=== PATIENT | female | born 1995 | race American Indian/Alaskan Native ===

== ENCOUNTER 2018-06-09 11:23 | Emergency (ER) | payer SELFPAY ==
[2018-06-09 11:31] VITALS: BP 119/80
--- NOTE | 2018-06-09 11:32 | Emergency Department Report ---
Chief Complaint: Nausea/Vomiting/Diarrhea Stated Complaint: NAUSEA Time Seen by Provider: 06/09/18 11:29 - HPI History of Present Illness: cc 3 week hx nausea with no vomiting every night at 7p a little discomfort but not really pain no diarrhea bm yesterday normal pmh conversion disorder causing pain eczema psh umbilical surgery rx daily none pcp none cig deny lmp sexually active 2-20 home preg in Mar neg MSE screening note: Focused history and physical exam performed. Due to findings the following was ordered: ED Disposition for MSE Condition: Stable
--- NOTE | 2018-06-09 12:11 | Emergency Department Report ---
Vomiting/Diarrhea - HPI Chief Complaint: Nausea/Vomiting/Diarrhea Stated Complaint: NAUSEA Time Seen by Provider: 06/09/18 11:29 Duration: 3 weeks Severity: mild Nausea/Vomiting Severity: Mild Diarrhea Severity: None Pain Location: Epigastric Pain Severity: Mild Symptoms: Yes Able to Tolerate Fluids, No Recent Unusual Foods, No Recent Untreated Water, No Recent use of Antibiotics, No Family w/ Similar Symptoms, No Contacts w/ Similar Symptoms, No Rash, No Hematuria, No Recent URI Symptoms Other History: She states her nausea is worse at night and definitely after she is lying down. States is in the epigastrium. She denies any metallic taste in mouth. ED Review of Systems ROS: Stated complaint: NAUSEA Other details as noted in HPI Comment: All other systems reviewed and negative ED Past Medical Hx - Past Medical History Previous Medical History?: Yes Additional medical history: Conversion disorder, eczema - Surgical History Past Surgical History?: No - Social History Smoking Status: Never Smoker - Medications Home Medications: Home Medications Medication Instructions Recorded Confirmed Last Taken Type Famotidine [Pepcid] 40 mg PO QHS #10 tablet 06/09/18 Unknown Rx Ondansetron [Zofran Odt] 4 mg PO Q8HR PRN #10 tab.rapdis 06/09/18 Unknown Rx Vomiting Diarrhea Exam - Exam General: Vital signs noted. No distress. Alert and acting appropriately. HEENT: Yes Moist Mucous Membranes, No Pharyngeal Erythema, No Pharyngeal Exudates, No Rhinorrhea, No Conjuctival Injection, No Frontal Tenderness, No Maxillary Tenderness Neck: No Adenopathy, No Rigidity Lungs: Yes Clear Lung Sounds, Yes Good Air Exchange, No Wheezes, No Stridor, No Cough, No Nasal Flaring, No Retractions, No Use of Accessory Muscles Heart exam: Regular: Yes, Murmur: No, Tachycardia: No Abdomen: Tenderness: No, Peritoneal Signs: No, Distention: No, Hyperactive Bowel sounds: No Skin exam: Rash: No, Edema: No, Normal turgor: Yes Neurologic: Alert and oriented, no deficits. Musculoskeletal: Unremarkable. ED Course Vital Signs 06/09/18 11:28 Temperature 98.0 F Pulse Rate 80 Respiratory 16 Rate Blood Pressure 119/80 O2 Sat by Pulse 100 Oximetry ED Medical Decision Making - Radiology Data Abdominal series shows no acute process Critical care attestation.: If time is entered above; I have spent that time in minutes in the direct care of this critically ill patient, excluding procedure time. ED Disposition Clinical Impression: GERD (gastroesophageal reflux disease) Qualifiers: Esophagitis presence: esophagitis presence not specified Qualified Code(s): K21.9 - Gastro-esophageal reflux disease without esophagitis Disposition: TO HOME OR SELFCARE Is pt being admited?: No Does the pt Need Aspirin: No Condition: Stable Instructions: Diet for Ulcers and Gastritis (ED), Gastroesophageal Reflux Disease (ED) Referrals: SHABBIR CULLEN MD [Staff Physician] - 7-10 days Time of Disposition: 13:25
[2018-06-09 12:13] LABS: HCG Qualitative,Urine Negative (Negative)
[2018-06-09 12:14] LABS: Bilirubin,Urine NEG (Negative); Blood,Urine MOD (Negative); Color,Urine Yellow (Yellow); Mucus,Urine 2+ /HPF; Protein,Urine <15 mg/dL mg/dL (Negative); WBC,Urine < 1.0 /HPF (0.0-6.0)
--- NOTE | 2018-06-09 12:44 | XRay Report ---
ABDOMINAL SERIES: History: Epigastric discomfort with nausea. Erect chest film shows no acute or significant changes involving the heart or lung [place]. There is no evidence of free air beneath the diaphragms. The gas pattern within the abdomen is unremarkable. There is no evidence of bowel dilatation, significant air-fluid levels, or masses. Organ shadows are unremarkable. IMPRESSION: Abdominal series within normal limits.
== END 2018-06-09 14:08 | disposition home or self-care (01) ==
LOC: ED 11:23
DX: K21.9 Gastro-esophageal reflux disease without esophagitis (principal)
CPT/HCPCS: 74022; 81001; 81025

== ENCOUNTER 2018-10-04 22:34 | Emergency (ER) | payer OTHER ==
--- NOTE | 2018-10-05 02:05 | Emergency Department Report ---
HPI - General Chief Complaint: Skin Rash Time Seen by Provider: 10/05/18 01:52 - HPI HPI: 23-year-old female presents to the emergency department with a complaint of a rash that has been going on for the past 2-3 days. She has some small individual lesions that have been showing up at this time to her bilateral arms, right shoulder, left chest, abdomen, and her feet. They are slightly tender, red, slightly raised. There is no bleeding, weeping, drainage. She denies any recent travel or excessive time outdoors. She denies any fever. She has not taken anything for her symptoms prior to presentation. She has a past history of eczema. ED Past Medical Hx - Past Medical History Previous Medical History?: Yes Additional medical history: Conversion disorder, eczema - Surgical History Past Surgical History?: Yes Additional Surgical History: Umbilical - Social History Smoking Status: Never Smoker Substance Use Type: None - Medications Home Medications: Home Medications Medication Instructions Recorded Confirmed Last Taken Type Famotidine [Pepcid] 40 mg PO QHS #10 tablet 06/09/18 Unknown Rx Ondansetron [Zofran Odt] 4 mg PO Q8HR PRN #10 tab.rapdis 06/09/18 Unknown Rx Clotrimazole [Antifungal Ringworm] 14.2 gm TP BID #1 tube 10/05/18 Unknown Rx Sulfamethoxazole/Trimethoprim 1 each PO BID #14 tablet 10/05/18 Unknown Rx [Bactrim DS TAB] ED Review of Systems ROS: Stated complaint: RASH ALL OVER BODY Other details as noted in HPI Comment: All other systems reviewed and negative Constitutional: denies: chills, fever Eyes: denies: eye pain, vision change ENT: denies: ear pain, throat pain Respiratory: denies: cough, shortness of breath Cardiovascular: denies: chest pain, palpitations Gastrointestinal: denies: abdominal pain, vomiting Genitourinary: denies: urgency, dysuria Musculoskeletal: denies: back pain, arthralgia Skin: rash, lesions Neurological: denies: headache, weakness Physical Exam - Physical Exam Vital Signs: Vital Signs 10/04/18 23:25 Temperature 97.9 F Pulse Rate 74 Respiratory 18 Rate Blood Pressure 132/85 O2 Sat by Pulse 97 Oximetry Physical Exam: GENERAL: The patient is well-developed well-nourished. HENT: Normocephalic. Atraumatic. Patient has moist mucous membranes. EYES: Extraocular motions are intact. NECK: Supple. Trachea is midline. CHEST/LUNGS: Clear to auscultation. There is no respiratory distress noted. HEART/CARDIOVASCULAR: Regular. There is no tachycardia. There is no murmur. ABDOMEN: Abdomen is soft, nontender. Patient has normal bowel sounds. There is no abdominal distention. SKIN: Patient has multiple small red, raised lesions to the bilateral upper extremities, left chest, abdomen and dorsum of the feet. No bleeding, weeping, drainage. NEURO: The patient is awake, alert, and oriented. The patient is cooperative. The patient has no focal neurologic deficits. The patient has normal speech. MUSCULOSKELETAL: There is no tenderness or deformity. There is no evidence of acute injury. ED Course Vital Signs 10/04/18 23:25 Temperature 97.9 F Pulse Rate 74 Respiratory 18 Rate Blood Pressure 132/85 O2 Sat by Pulse 97 Oximetry ED Medical Decision Making - Medical Decision Making Patient presents to the emergency department with a 2 day history of a rash and/or lesions that are popping up to the bilateral upper extremities, abdomen, chest and feet. One or 2 of these lesions are circular and appear consistent with tinea corporis/ringworm. Some of the lesions are a little more irregular and the patient says that they are slightly tender. There is no bleeding, weeping or drainage. These lesions and/or this rash does not appear consistent with any particular viral exanthem. The patient was placed on clotrimazole for the tinea corporis appearance and she has been given a prescription for some antibiotics. She was given a referral for a few different dermatologists. She will return to the ER with any worsening of her symptoms or any acute distress. - Differential Diagnosis tinea corporis, cellulitis, dermatitis, viral exanthem Critical Care Time: No Critical care attestation.: If time is entered above; I have spent that time in minutes in the direct care of this critically ill patient, excluding procedure time. ED Disposition Clinical Impression: Rash Disposition: DC-01 TO HOME OR SELFCARE Is pt being admited?: No Condition: Stable Instructions: Acute Rash (ED) Additional Instructions: Please follow up with a content coordinator in the next few days. Return to the emergency Department with any worsening of your symptoms including increased swelling, increased pain, development of fever, or if any acute distress. Take/use the antibiotics and antifungal cream as prescribed. Prescriptions: Clotrimazole [Antifungal Ringworm] 14.2 gm TP BID #1 tube Sulfamethoxazole/Trimethoprim [Bactrim DS TAB] 1 each PO BID #14 tablet Referrals: BHAVIK MENDIOLA MD [Staff Physician] - 2-3 Days Chris Hammond [Other] - 2-3 Days Time of Disposition: 02:07
[2018-10-05 02:21] VITALS: BP 96/71
== END 2018-10-05 02:20 | disposition home or self-care (01) ==
LOC: ED 22:34
DX: R21 Rash and other nonspecific skin eruption (principal); Z91.018 Allergy to other foods
CPT/HCPCS: 99283